=== PATIENT | female | born 1985 | race Caucasian/White ===

== ENCOUNTER 2016-02-17 11:22 | Emergency (ER) | payer MEDICAID | END 2016-02-17 12:11 | disposition left against medical advice (07) | LOC: ER 11:22 | DX: Z53.21 Procedure and treatment not carried out due to patient leaving prior to being seen by health care provider (principal) | CPT/HCPCS: 99281 ==

== ENCOUNTER 2016-02-18 11:48 | Emergency (ER) | payer MEDICAID | END 2016-02-18 15:25 | disposition home or self-care (01) | LOC: ER 11:48 | CPT/HCPCS: 71010; 71260 ==

== ENCOUNTER → 2016-02-18 | Emergency (ER) | payer MEDICAID ==
[~2016-02-18] MED LIST: ONDANSETRON ODT 4 MG TAB ONE
== END ==
LOC: ER 22:14
DX: Z53.21 Procedure and treatment not carried out due to patient leaving prior to being seen by health care provider (principal)

== ENCOUNTER 2016-02-20 00:28 | Emergency (ER) | payer MEDICAID ==
[2016-02-20] MEDS ORDERED: ACETAMINOPHEN 325 MG TAB ONE (02:30)
== END 2016-02-20 02:34 | disposition home or self-care (01) ==
LOC: ER 00:28
CPT/HCPCS: 71020; 93005